=== PATIENT | male | born 1985 ===

== ENCOUNTER → 2019-03-02 | Outpatient (CLI) | payer BC ==
[2019-03-02 14:10] LABS: VITAMIN D, 25-HYDROXY 30.2 ng/mL (30-100)
[2019-03-04 00:06] LABS: TESTOSTERONE FREE, (DIRECT) 11.3 pg/mL (8.7-25.1)
== END | disposition home or self-care (01) ==
LOC: LAB 12:28
PROVIDERS: Internal Medicine
DX: E53.8 Deficiency of other specified B group vitamins (principal); E55.9 Vitamin D deficiency, unspecified; E29.1 Testicular hypofunction